=== PATIENT | male | born 1975 | race Caucasian/White ===

== ENCOUNTER 2016-08-18 21:59 | Emergency (ER) | payer SELFPAY ==
[2016-08-18 22:00] VITALS: BP 134/103; PULSE 113; RESP 20; TEMP 98; O2SAT 100
[2016-08-18] MEDS ORDERED: SODIUM CHLORIDE 0.9% FLUSH 5 ML FLUSH IVF PRN (22:45)
[2016-08-18 22:50] LABS: AUTOMATED NEUTROPHIL # 5.7 TH/MM3 (1.8-7.7); BASOPHIL # 0.2 TH/MM3 (0-0.2); BASOPHIL % 2.6 % (0.0-2.0); EOSINOPHIL # 0.1 TH/MM3 (0-0.4); EOSINOPHIL % 1.5 % (0.0-4.0); HEMATOCRIT 48.5 % (39.0-51.0); HEMO FLAGS DIFF FINAL; LYMPH % 25.4 % (9.0-44.0); LYMPHOCYTE # 2.2 TH/MM3 (1.0-4.8); MEAN CELL VOLUME 84.6 FL (80.0-100.0); MEAN CORPUSCULAR HEMOGLOBIN 28.6 PG (27.0-34.0); MEAN CORPUSCULAR HGB CONC 33.8 % (32.0-36.0); MONO % 4.3 % (0.0-8.0); NEUT % 66.2 % (16.0-70.0); PLATELET COUNT 357 TH/MM3 (150-450); RED BLOOD COUNT 5.73 MIL/MM3 (4.50-5.90); RED CELL DISTRIBUTION WIDTH 12.1 % (11.6-17.2); WHITE BLOOD COUNT 8.6 TH/MM3 (4.0-11.0)
--- NOTE | 2016-08-18 22:50 | RADHPO ---
EXAM DATE/TIME: 08/18/2016 22:41 [place] COMPARISON: No previous studies available for comparison. INDICATIONS : Chest pain. MEDICAL HISTORY : None. SURGICAL HISTORY : None. ENCOUNTER: Initial ACUITY: 1 week PAIN SCORE: 7/10 LOCATION: Bilateral chest FINDINGS: A single view of the chest demonstrates the lungs to be symmetrically aerated without evidence of mas s, infiltrate or effusion. The cardiomediastinal contours are unremarkable. Osseous structures are intact. CONCLUSION: No acute disease. Luis Craig MD on August 18, 2016 at 22:48 Board Certified Radiologist. This report was verified electronically.
[2016-08-18] MEDS ORDERED: LISI10TA3 PO (22:51)
[2016-08-18] MEDS ORDERED: OXYC30TA PO (22:51)
[2016-08-18] MEDS ORDERED: FURO1TAB62 PO (22:51)
[2016-08-18] MEDS ORDERED: ADDE10 PO (22:51)
[2016-08-18] MEDS ORDERED: XANA2TAB2 PO (22:51)
[2016-08-18 22:52] VITALS: BP 152/87; PULSE 87; RESP 16; O2SAT 99
[2016-08-18 22:57] LABS: CHLORIDE 101 MEQ/L (98-107); POTASSIUM 4.4 MEQ/L (3.5-5.1); SODIUM (NA) 136 MEQ/L (136-145)
[2016-08-18 23:01] LABS: ANION GAP 9 MEQ/L (5-15); BICARBONATE 26.1 MEQ/L (21.0-32.0); BLOOD UREA NITROGEN 24 MG/DL (7-18); MAGNESIUM 1.6 MG/DL (1.5-2.5)
[2016-08-18 23:02] LABS: APTT (PATIENT) 26.1 SEC (24.3-30.1); PROTHROMBIN TIME - PATIENT 11.2 SEC (9.8-11.6)
[2016-08-18 23:04] LABS: ALT (GPT) 36 U/L (12-78); AST (GOT) 18 U/L (15-37); GLOMERULAR FILTRATION RATE 95 ML/MIN (>89)
[2016-08-18 23:07] LABS: ALKALINE PHOSPHATASE 81 U/L (45-117)
[2016-08-18 23:10] VITALS: BP_SYST 114; BP_SYST 98; BP_DIAS 75; BP_DIAS 85; PULSE 87; RESP 16
--- NOTE | 2016-08-18 23:13 | PD ---
HPI Chief Complaint: Chest Pain Time Seen by Provider: 22:37 Travel History International Travel<30 days: No Contact w/Intl Traveler<30days: No Traveled to known affect area: No History of Present Illness HPI The patient is a 40-year-old male that comes in with chest pain, described as a squeezing that started shortly after an argument with his girlfriend that 9:45 PM. The pain is constant and associated with nausea, shortness of breath and diaphoresis but no radiation of pain. The patient last Tuesday had a coronary angiogram done at and and it was normal. They did this for the same pain. They did find that he has a slightly enlarged heart and has congestive heart failure. The patient has been on narcotics in high doses chronically, he takes oxycodone 30 mg every 8 hours for pain and Xanax 2 mg every 8 hours for anxiety. He also takes Adderall. PFSH Past Medical History Hx Anticoagulant Therapy: Yes (ASA) ADD: Yes Anxiety: Yes Cardiac Catheterization: Yes Chest Pain: Yes Congestive Heart Failure: Yes Hypertension: Yes Social History Alcohol Use: Yes Tobacco Use: Yes Substance Use: No Allergies-Medications (Allergen,Severity, Reaction): Coded Allergies: Inapsine (Verified Allergy, Intermediate, 08/18/16) Reglan (Verified Allergy, Intermediate, 08/18/16) Toradol (Verified Allergy, Intermediate, 08/18/16) Uncoded Allergies: EN (Allergy, Intermediate, 08/18/16) Reported Meds & Prescriptions Reported Meds & Active Scripts Active Reported Adderall (Amphetamine-Dextroamphetamine) 10 Mg Tab 10 Mg PO DIRECTED Take 10 mg in the morning & 5 mg (1/2 tab) at noon. Lasix (Furosemide) 20 Mg Tab 20 Mg PO DAILY Lisinopril 10 Mg Tab 10 Mg PO DAILY Xanax (Alprazolam) 2 Mg Tab 2 Mg PO Q8H PRN Oxycodone (Oxycodone HCl) 30 Mg Tab 30 Mg PO Q8H PRN Review of Systems Except as stated in HPI: all other systems reviewed are Neg Physical Exam Narrative GENERAL: The patient is alert, anxious in slight apparent distress with his chest discomfort. His vital signs show pulse rate of 113 with blood pressure 134/103 but are otherwise normal. SKIN: Warm and dry. HEAD: Atraumatic. Normocephalic. EYES: Pupils equal and round. No scleral icterus. No injection or drainage. ENT: No nasal bleeding or discharge. Mucous membranes pink and moist. NECK: Trachea midline. No JVD. CARDIOVASCULAR: Regular rate and rhythm. No murmur appreciated. RESPIRATORY: No accessory muscle use. Clear to auscultation. Breath sounds equal bilaterally. GASTROINTESTINAL: Abdomen soft, non-tender, nondistended. Hepatic and splenic margins not palpable. MUSCULOSKELETAL: No obvious deformities. No clubbing. No cyanosis. No edema. NEUROLOGICAL: Awake and alert. No obvious cranial nerve deficits. Motor grossly within normal limits. Normal speech. PSYCHIATRIC: The patient is anxious; insight and judgment normal. Data Data Last Documented VS Vital Signs Date Time Temp Pulse Resp B/P Pulse Ox O2 Delivery O2 Flow Rate FiO2 08/19/16 00:01 78 16 109/72 99 Nasal Cannula 2 08/18/16 22:00 98.0 Orders Electrocardiogram (08/18/16 22:37) B-Type Natriuretic Peptide (08/18/16 22:37) Ckmb (Isoenzyme) Profile (08/18/16 22:37) Complete Blood Count With Diff (08/18/16 22:37) Comprehensive Metabolic Panel (08/18/16 22:37) Magnesium (Mg) (08/18/16 22:37) Prothrombin Time / Inr (Pt) (08/18/16 22:37) Act Partial Throm Time (Ptt) (08/18/16 22:37) Troponin I (08/18/16 22:37) Chest, Single Ap (08/18/16 22:37) Ecg Monitoring (08/18/16 22:37) Bilateral Bp Monitoring (08/18/16 22:37) Iv Access Insert/Monitor (08/18/16 22:37) Oximetry (08/18/16 22:37) Oxygen Administration (08/18/16 22:37) Sodium Chloride 0.9% Flush (Ns Flush) (08/18/16 22:45) Nitroglycerin Sl (Nitrostat Sl) (08/18/16 23:15) Urinalysis - C+S If Indicated (08/18/16 23:40) Labs Laboratory Tests Test 08/18/16 08/18/16 22:40 23:50 White Blood Count 8.6 TH/MM3 Red Blood Count 5.73 MIL/MM3 Hemoglobin 16.4 GM/DL Hematocrit 48.5 % Mean Corpuscular Volume 84.6 FL Mean Corpuscular Hemoglobin 28.6 PG Mean Corpuscular Hemoglobin 33.8 % Concent Red Cell Distribution Width 12.1 % Platelet Count 357 TH/MM3 Mean Platelet Volume 7.9 FL Neutrophils (%) (Auto) 66.2 % Lymphocytes (%) (Auto) 25.4 % Monocytes (%) (Auto) 4.3 % Eosinophils (%) (Auto) 1.5 % Basophils (%) (Auto) 2.6 % Neutrophils # (Auto) 5.7 TH/MM3 Lymphocytes # (Auto) 2.2 TH/MM3 Monocytes # (Auto) 0.4 TH/MM3 Eosinophils # (Auto) 0.1 TH/MM3 Basophils # (Auto) 0.2 TH/MM3 CBC Comment DIFF FINAL Differential Comment Prothrombin Time 11.2 SEC Prothromb Time International 1.0 RATIO Ratio Activated Partial 26.1 SEC Thromboplast Time Sodium Level 136 MEQ/L Potassium Level 4.4 MEQ/L Chloride Level 101 MEQ/L Carbon Dioxide Level 26.1 MEQ/L Anion Gap 9 MEQ/L Blood Urea Nitrogen 24 MG/DL Creatinine 0.88 MG/DL Estimat Glomerular Filtration 95 ML/MIN Rate Random Glucose 232 MG/DL Calcium Level 8.8 MG/DL Magnesium Level 1.6 MG/DL Total Bilirubin 1.0 MG/DL Aspartate Amino Transf 18 U/L (AST/SGOT) Alanine Aminotransferase 36 U/L (ALT/SGPT) Alkaline Phosphatase 81 U/L Total Creatine Kinase 65 U/L Troponin I LESS THAN 0.02 NG/ML B-Type Natriuretic Peptide 125 PG/ML Total Protein 8.2 GM/DL Albumin 3.6 GM/DL Urine Color YELLOW Urine Turbidity CLEAR Urine pH 6.5 Urine Specific [place] 1.022 Urine Protein 30 mg/dL Urine Glucose (UA) NEG mg/dL Urine Ketones NEG mg/dL Urine Occult Blood NEG Urine Nitrite NEG Urine Bilirubin NEG Urine Leukocyte Esterase NEG Urine RBC 0-2 /hpf Urine WBC 0-2 /hpf Urine Squamous Epithelial 0-5 /hpf Cells Urine Bacteria NONE /hpf Microscopic Urinalysis Comment CULT NOT INDICATED MDM Medical Decision Making Medical Screen Exam Complete: Yes Emergency Medical Condition: Yes Medical Record Reviewed: Yes Interpretation(s) The chest x-ray is normal and the cardiac silhouette normal. The CBC is normal. The complete metabolic profile shows a BUN of 24 but is otherwise normal. The BNP is minimally elevated at 125. The cardiac enzymes are normal. The coagulation profile is normal. The urinalysis is normal except for 30 of protein and culture is not indicated. Differential Diagnosis Anxiety, acute coronary syndrome, congestive heart failure, electrolyte imbalance, hypo-/hyperglycemia Narrative Course The patient does have anxiety. There is no evidence of any acute coronary syndrome. He has had a coronary angiogram only a few days ago but that apparently showed no blockages. Impression: Chest discomfort etiology undetermined, anxiety Plan: The patient is to take his medicines as prescribed and follow-up with his primary care physician. Diagnosis Primary Impression: Chest pain of unknown etiology Additional Impression: Anxiety Additional Instructions: Follow-up with your primary care physician or your aquatic ecologist that use in [place]. Med/Other Pt SpecificInfo: No Change to Meds Disposition: 01 DISCHARGE HOME Condition: Stable Issa Mg MD Aug 18, 2016 23:13
[2016-08-18] MEDS: NITROGLYCERIN 0.4 MG SL 25 TABS/BTL SL SCH ×2 (23:15→23:20)
[2016-08-18 23:21] LABS: CREATINE KINASE 65 U/L (39-308)
[2016-08-18 23:54] LABS: BLOOD, URINE NEG (NEG); GLUCOSE,URINE NEG (NEG); KETONE, URINE NEG (NEG); NITRITE,URINE NEG (NEG); PH, URINE 6.5 (5.0-8.5)
[2016-08-19] LABS: URINE COLOR YELLOW (YELLW/STRAW)
[2016-08-19 00:01] VITALS: BP 109/72; PULSE 78; RESP 16; O2SAT 99
[2016-08-19 00:01] LABS: COMMENT (UR) CULT NOT INDICATED; CULTURE IF INDICATED CULT NOT INDICATED; RBC, URINE 0-2 /hpf (0-3); SQUAMOUS EPITHELIAL CELL URINE 0-5 /hpf (0-5); WBC, URINE 0-2 /hpf (0-5)
[2016-08-19 01:20] VITALS: BP 122/72; PULSE 85; RESP 16
[2016-08-19 01:34] VITALS: BP 119/76
--- NOTE | 2016-08-20 06:59 | EKG ---
Date Performed: 08/18/2016 Time Performed: 22:06:08 PTAGE: 40 years EKG: Sinus tachycardia with borderline 1st degree A-V block. Left axis deviation Possible ovi septal infarct - age undetermined Abnormal ECG NO PREVIOUS TRACING DOCTOR: Manuel Mcguire Interpretating Date/Time 08/20/2016 06:57:46
== END 2016-08-19 01:36 | disposition home or self-care (01) ==
LOC: PHED 21:59
DX: R07.9 Chest pain, unspecified (principal); F41.9 Anxiety disorder, unspecified; I50.9 Heart failure, unspecified; R00.0 Tachycardia, unspecified; I10 Essential (primary) hypertension; I44.0 Atrioventricular block, first degree; Z72.0 Tobacco use
CPT/HCPCS: 71010; 80053; 81001; 82550; 83735; 83880; 84484; 85025; 85610; 85730; 93005

== ENCOUNTER 2017-01-20 15:53 | Emergency (ER) | payer SELFPAY ==
[~2017-01-20] VITALS: Ht 180.3 cm; Wt 100.0 kg
[~2017-01-20 15:53] MED LIST: ADDE10 PO; FURO1TAB62 PO; LISI10TA3 PO; OXYC30TA PO; XANA2TAB2 PO
[2017-01-20 16:05] VITALS: BP 155/97; PULSE 94; RESP 18; TEMP 98.5; O2SAT 94
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
[2017-01-20 16:48] LABS: AUTOMATED NEUTROPHIL # 6.1 TH/MM3 (1.8-7.7); BASOPHIL % 0.4 % (0.0-2.0); EOSINOPHIL # 0.2 TH/MM3 (0-0.4); EOSINOPHIL % 1.9 % (0.0-4.0); HEMATOCRIT 45.5 % (39.0-51.0); HEMO FLAGS DIFF FINAL; LYMPH % 32.8 % (9.0-44.0); LYMPHOCYTE # 3.4 TH/MM3 (1.0-4.8); MEAN CELL VOLUME 86.7 FL (80.0-100.0); MEAN CORPUSCULAR HEMOGLOBIN 30.1 PG (27.0-34.0); MEAN CORPUSCULAR HGB CONC 34.7 % (32.0-36.0); MONO % 5.4 % (0.0-8.0); NEUT % 59.5 % (16.0-70.0); PLATELET COUNT 295 TH/MM3 (150-450); RED BLOOD COUNT 5.24 MIL/MM3 (4.50-5.90); RED CELL DISTRIBUTION WIDTH 12.3 % (11.6-17.2); WHITE BLOOD COUNT 10.3 TH/MM3 (4.0-11.0)
[2017-01-20 16:55] LABS: AMPHETAMINE, URINE NEG (NEG); BARBITURATES, URINE NEG (NEG); COCAINE, URINE NEG (NEG)
[2017-01-20 17:13] LABS: ALT (GPT) 38 U/L (12-78); ANION GAP 6 MEQ/L (5-15); AST (GOT) 18 U/L (15-37); BICARBONATE 33.3 MEQ/L (21.0-32.0); BLOOD UREA NITROGEN 19 MG/DL (7-18); CHLORIDE 93 MEQ/L (98-107); GLOMERULAR FILTRATION RATE 90 ML/MIN (>89); SODIUM (NA) 132 MEQ/L (136-145)
[2017-01-20 17:15] LABS: ALKALINE PHOSPHATASE 86 U/L (45-117); TOTAL BILIRUBIN ADULT 0.8 MG/DL (0.2-1.0)
[2017-01-20] MEDS ORDERED: CARV12.5 PO (20:00)
[2017-01-20] MEDS ORDERED: SPIR25 PO (20:00)
[2017-01-20] MEDS ORDERED: CARVEDILOL 12.5 MG TAB PO ONE (21:00)
[2017-01-20] MEDS ORDERED: NICOTINE 21 MG/24 HR PATCH T-DERMAL ONE (21:00)
[2017-01-20] MEDS ORDERED: SPIRONOLACTONE 25 MG TAB PO ONE (21:00)
[2017-01-20 23:00] VITALS: BP 155/94; PULSE 81; RESP 18; TEMP 98; O2SAT 100
[2017-01-20] MEDS ORDERED: ACETAMINOPHEN 325 MG TAB PO ONE (23:15)
[2017-01-20] MEDS ORDERED: diphenhydrAMINE HCL 50 MG CAP PO ONE (23:15)
[2017-01-21 02:39] VITALS: BP 104/60; PULSE 65; RESP 16; O2SAT 99
[2017-01-21 06:00] VITALS: BP 142/88; PULSE 68; RESP 20; O2SAT 98
[2017-01-21 08:59] VITALS: BP 142/88
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
== END 2017-01-21 09:26 | disposition home or self-care (01) ==
LOC: NEDAMB 15:53 → NEPJ 01-21 09:26
DX: T14.91 Suicide attempt (principal); X83.8XXA Intentional self-harm by other specified means, initial encounter; Z79.899 Other long term (current) drug therapy
CPT/HCPCS: 80053; 80307; 85025; 99284; Q0163